=== PATIENT | male | born 1985 | race African-American/Black ===

== ENCOUNTER 2020-04-04 14:12 | Emergency (ER) | payer SELFPAY ==
--- NOTE | 2020-04-04 14:20 | NUR ---
CALLED TO TRIAGE, NO ANSWER, PATIENT LEFT PER ADMITTING
--- NOTE | 2020-04-04 14:46 | NUR ---
CALLED PT IN WAITING ROOM & OUTSIDE, NO ANSWER.
== END 2020-04-04 14:56 | disposition left against medical advice (07) ==
LOC: ER 14:16
DX: Z53.21 Procedure and treatment not carried out due to patient leaving prior to being seen by health care provider (principal)